=== PATIENT | male | born 2000 | race Two or more races ===

== ENCOUNTER 2020-06-10 15:58 | Emergency (ER) | payer OTHER ==
[~2020-06-10] VITALS: Ht 170.2 cm; Wt 77.0 kg
--- NOTE | 2020-06-10 16:02 | PHYS DOC ---
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 Pain in testicle started Tuesday afternoon. Patient noticed it most prevalent after lifting weights in the gym. Patient works on the [employer] unit at [employer]. Does PT regular. Patient's denies any prior history of STDs. Has had approximately 30 sexual partners in his lifetime. No recent travel overseas. No recent travel outside [facility]. Pain is somewhat localized to the epididymis of the right testicle. Lie of the testicle appears to be normal. If circumcised male. No obvious penile discharge. Patient denies any sexual activity for the last 2 weeks. Patient denies any history immunosuppression. Update vaccinations. No history of fever chills. Patient initially seen at [place] for the complaint and then referred to [facility] who then referred him to [facility]. Review of Systems: Review of Systems: Constitutional: Denies fever or chills Eyes: Denies change in visual acuity HENT: Denies nasal congestion or sore throat Respiratory: Denies cough or shortness of breath Cardiovascular: Denies chest pain or edema GI: Denies abdominal pain, nausea, vomiting, bloody stools or diarrhea . Complains of right testicular pain : Denies dysuria Musculoskeletal: Denies back pain or joint pain Integument: Denies rash Neurologic: Denies headache, focal weakness or sensory changes Endocrine: Denies polyuria or polydipsia Lymphatic: Denies swollen glands Psychiatric: Denies depression or anxiety Heart Score: Risk Factors: Risk Factors: DM, Current or recent (<one month) smoker, HTN, HLP, family history of CAD, obesity. Risk Scores: Score 0 - 3: 2.5% MACE over next 6 weeks - Discharge Home Score 4 - 6: 20.3% MACE over next 6 weeks - Admit for Clinical Observation Score 7 - 10: 72.7% MACE over next 6 weeks - Early Invasive Strategies Family History: Family History: Noncontributory to presentation Current Medications: Current Meds: See nursing for home meds Allergies: Allergies: No known drug allergies Physical Exam: PE: Constitutional: Well developed, well nourished, no acute distress, non-toxic appearance. [] HENT: Normocephalic, atraumatic, bilateral external ears normal, oropharynx moist, no oral exudates, nose normal. [] Eyes: PERRLA, EOMI, conjunctiva normal, no discharge. [] Neck: Normal range of motion, no tenderness, supple, no stridor. [] Cardiovascular:Heart rate regular rhythm, no murmur [] Lungs & Thorax: Bilateral breath sounds equal at apex on auscultation [] Abdomen: Bowel sounds normal, soft, no tenderness, no masses, no pulsatile masses. Circumcised male. Testicles descended. Mild tenderness of epididymitis on right. No obvious inguinal hernia, some tenderness to wall. . Skin: Warm, dry, no erythema, no rash. [] Back: No tenderness, no CVA tenderness. [] Extremities: No tenderness, no cyanosis, no clubbing, ROM intact, no edema. [] Neurologic: Alert and oriented X 3, normal motor function, normal sensory function, no focal deficits noted. [] Psychologic: Affect right, judgement normal, mood normal. [] EKG: EKG: [] Radiology/Procedures: Radiology/Procedures: [][address] [place] [address] IMAGING REPORT Signed PATIENT: ELGIN BALBUENA ACCOUNT: [id number] : 2000 LOCATION: ER AGE: 19 SEX: M EXAM STATUS: REG ER ORD. PHYSICIAN: SOFIE SOSA MD REASON: pain PROCEDURE: TESTICULAR/SCROTUM Testicular ultrasound HISTORY: Right testicular pain. FINDINGS: Right testicle measures 3.7 x 2.3 x 1.7 cm left testicle measures 3.7 x 2.3 x 1.6 cm. No testicular mass, edema, microlithiasis or hypervascularity. There is symmetric intact bilateral testicular blood flow without evidence of torsion. No hydrocele. No extratesticular masses. No enlargement or hypervascularity or mass of the epididymis bilaterally. 6 mm right epididymal cyst. 10 mm left epididymal cyst. IMPRESSION: Normal sonography of the testicles. Simple bilateral epididymal cysts. Electronically signed by: Bianka Tavarez MD (06/10/2020 4:55 PM) [id number] DICTATED AND SIGNED BY: BIANKA TAVAREZ MD DATE: 06/10/20 [id number] CC: JOSIAH NEWSOME; SOFIE SOSA MD ~ Course & Med Decision Making: Course & Med Decision Making Pertinent Labs and Imaging studies reviewed. (See chart for details) Patient is ice packs as needed. Wear a jock strap.. Tylenol and ibuprofen for discomfort. Push fluids. Follow-up with [facility]. Take Keflex 500 mg 3 times a day. Limit weight lifting. Return if any concerns. Impression: 1. Rt Epididymiitis [] Dragon Disclaimer: Dragon Disclaimer: This electronic medical record was generated, in whole or in part, using a voice recognition dictation system. Departure Departure: Disposition: HOME/RESIDENCE PRIOR TO ADM Condition: STABLE Referrals: JOSIAH NEWSOME (PCP) Scripts Ibuprofen (IBUPROFEN) 400 Mg Tablet 400 MG PO QIDPRN PRN for PAIN, #30 TAB Prov: SOFIE SOSA MD 06/10/20 Cephalexin (KEFLEX) 500 Mg Capsule 500 MG PO TID for Epididymitis, #30 BOTTLE Prov: SOFIE SOSA MD 06/10/20 Justification of Admission: Justification of Admission: Justification of Admission Dx: N/A Dragon Disclaimer This chart was dictated in whole or in part using Voice Recognition software in a busy, high-work load, and often noisy Emergency Department environment. It may contain unintended and wholly unrecognized errors or omissions. SOFIE SOSA MD Jun 10, 2020 16:02
[2020-06-10 16:26] LABS: CLARITY,URINE CLEAR
[2020-06-10 16:27] LABS: BILIRUBIN,URINE NEG (NEG); COLOR,URINE YELLOW; GLUCOSE,URINE NEG (NEG); NITRITE,URINE NEG (NEG); UROBILINOGEN,URINE 0.2 mg/dL (0.2 mg/dL)
[2020-06-10 16:33] LABS: BACTERIA,URINE 0 /HPF (0-FEW); RBC,URINE 0 /HPF (0-2); WBC,URINE RARE /HPF (0-4)
--- NOTE | 2020-06-10 16:58 | RAD ---
Testicular ultrasound HISTORY: Right testicular pain. FINDINGS: Right testicle measures 3.7 x 2.3 x 1.7 cm left testicle measures 3.7 x 2.3 x 1.6 cm. No testicular mass, edema, microlithiasis or hypervascularity. There is symmetric intact bilateral testicular blood flow without evidence of torsion. No hydrocele. No extratesticular masses. No enlargement or hypervascularity or mass of the epididymis bilaterally. 6 mm right epididymal cyst. 10 mm left epididymal cyst. IMPRESSION: Normal sonography of the testicles. Simple bilateral epididymal cysts. Electronically signed by: Chun Tavarez MD (06/10/2020 4:55 PM) [id number]
[2020-06-10] MEDS ORDERED: ONDANSETRON ODT 4 MG TAB.RAPDIS PO ONE (17:15)
[2020-06-10] MEDS ORDERED: cefTRIAXone IM 1 GM VIAL IM ONE ×2 (17:15→17:25)
[2020-06-10] MEDS ORDERED: KETOROLAC 60 MG/2 ML VIAL. IM ONE ×2 (17:15→17:25)
[2020-06-10] MEDS ORDERED: AZITHROMYCIN 250 MG TABLET. PO ONE (17:15)
[2020-06-10] MEDS ORDERED: metroNIDAZOLE 500 MG TABLET PO ONE (17:15)
[2020-06-10] MEDS ORDERED: CEPH-264 PO (17:20)
[2020-06-10] MEDS ORDERED: IBUP400T18 PO (17:20)
[2020-06-10] MEDS ORDERED: ONDANSETRON ODT 4 MG TAB.RAPDIS ONE (17:25)
[2020-06-10 17:36] VITALS: BP 104/63
== END 2020-06-10 17:45 | disposition home or self-care (01) ==
LOC: ER 15:58
DX: N45.1 Epididymitis (principal)
CPT/HCPCS: 76870; 81001; 96372; 99284; J0456; J0696; J1885; Q0162

== ENCOUNTER 2020-10-31 10:17 | Emergency (ER) | payer OTHER ==
[~2020-10-31] VITALS: Ht 170.2 cm; Wt 76.7 kg
[2020-10-31 10:20] VITALS: BP 135/68
--- NOTE | 2020-10-31 11:06 | PHYS DOC ---
Past History Past Medical History: No Pertinent History Past Surgical History: No Surgical History Alcohol Use: None General Adult EDM: Chief Complaint: ABSCESS HPI: HPI: Patient is a 20-year-old male coming in for an abscess to his right inner buttock. States has been present but a week. Denies any history of abscesses or trauma. No systemic complaints. Review of Systems: Review of Systems: All other systems within normal limits except for as noted in the HPI Allergies: Allergies: Allergies Coded Allergies Type Severity Reaction Last Updated Verified No Known Drug Allergies 06/10/20 No Physical Exam: PE: Constitutional: Well developed, well nourished, no acute distress, non-toxic appearance. [] HENT: Normocephalic, atraumatic, bilateral external ears normal, nose normal. [] Eyes: PERRLA, conjunctiva normal, no discharge. [] Neck: No rigidity, supple, no stridor. [] Cardiovascular: Regular rate and rhythm, brisk cap refill [] Lungs & Thorax: Non labored symmetric respirations, no tachypnea or respiratory distress [] Abdomen: Soft, nondistended. Skin: Warm, dry, no erythema, no rash. Large firm area on the right buttock near crease. [] Back: Unremarkable Extremities: No deformities, range of motion grossly intact, no lower extremity edema [] Neurologic: Alert and oriented X 3, no focal deficits noted. [] Psychologic: Affect normal, judgement normal, mood normal. [] Current Patient Data: Vital Signs: Vital Signs Date Time Temp Pulse Resp B/P (MAP) Pulse Ox O2 Delivery O2 Flow Rate FiO2 10/31/20 10:20 98.1 98 18 135/68 (90) 98 Room Air EKG: EKG: [] Radiology/Procedures: Radiology/Procedures: EXAM: CT pelvis with IV contrast DATE: 10/31/2020 11:26 AM COMPARISON: No prior INDICATION: abscess for 1 week in between buttcheeks TECHNIQUE: CT the pelvis was performed following the administration of IV contrast. Axial, coronal and sagittal reformatted images were generated. PQRS compliance statement - One or more of the following individualized dose reduction techniques were utilized for this study: 1. Automated exposure control 2. Adjustment of the mA and/or kV according to patient size 3. Use of iterative reconstruction technique FINDINGS: Along the right gluteal fold there is a 4.1 x 2.5 cm peripherally enhancing collection with marked associated soft tissue infiltration, consistent with abscess. No convincing extension to the rectum. Moderate colonic stool content is seen. Infiltration is seen about the bladder with mild bladder wall thickening. No aggressive osseous lesion is seen. IMPRESSION: 1. 4.1 cm fluid collection along the right gluteal folds consistent with abscess. Moderate associated soft tissue infiltration. 2. Thickening of the bladder wall with infiltration may be seen with cystitis and can be correlated with urinalysis. [] Impressions: Incision and drainage procedure note. Area numbed with 3 cc of 1% lidocaine. 11 blade scalpel was used to make a cruciate incision. Moderate amount of purulent drainage and caseous discharge was expelled. Wound dressed with gauze and adhesive. Heart Score: HEART Score for Chest Pain: HEART Score for Chest Pain Response (Comments) Value ECG Normal 0 Total 0 Risk Factors: Risk Factors: DM, Current or recent (<one month) smoker, HTN, HLP, family history of CAD, obesity. Risk Scores: Score 0 - 3: 2.5% MACE over next 6 weeks - Discharge Home Score 4 - 6: 20.3% MACE over next 6 weeks - Admit for Clinical Observation Score 7 - 10: 72.7% MACE over next 6 weeks - Early Invasive Strategies Course & Med Decision Making: Course & Med Decision Making Pertinent Labs and Imaging studies reviewed. (See chart for details) No deep tissue abscess. Patient started on doxycycline today for epididymitis. Advised patient to continue taking his doxycycline to cover for abscess and cellulitis as well. [] Faizaon Disclaimer: Dragon Disclaimer: This electronic medical record was generated, in whole or in part, using a voice recognition dictation system. Departure Departure: Impression: Primary Impression: Abscess Disposition: 01 DC HOME SELF CARE/HOMELESS Condition: STABLE Referrals: JOSIAH NEWSOME (PCP) Patient Instructions: Incision and Drainage, Care After MABLE ROPER MD Oct 31, 2020 11:06
[2020-10-31] MEDS ORDERED: IOHEXOL 300 MG/ML 75 ML VIAL. IV ONE (11:15)
[2020-10-31 11:25] LABS: BASO % 0 % (0-3); EOS # 0.1 x10^3/uL (0.0-0.7); EOS % 1 % (0-3); HEMATOCRIT 44.7 % (39.0-53.0); HEMOGLOBIN 14.7 g/dL (13.0-17.5); LYMPH # 1.9 x10^3/uL (1.0-4.8); LYMPH % 15 % (24-48); MEAN CORPUSCULAR HEMOGLOBIN 30 pg (25-35); MEAN CORPUSCULAR HGB CONC 33 g/dL (31-37); MEAN CORPUSCULAR VOLUME 90 fL (79-100); MONO # 1.1 x10^3/uL (0.0-1.1); MONO % 9 % (0-9); NEUT # 10.1 x10^3uL (1.8-7.7); NEUT % 76 % (31-73); PLATELET COUNT 255 x10^3/uL (140-400); RED BLOOD COUNT 4.99 x10^6/uL (4.30-5.70); RED CELL DISTRIBUTION WIDTH 12.5 % (11.5-14.5); WHITE BLOOD COUNT 13.2 x10^3/uL (4.0-11.0)
[2020-10-31 11:32] LABS: CALCIUM 8.7 mg/dL (8.5-10.1); CREATININE 1.1 mg/dL (0.7-1.3); GFR 84.5; POTASSIUM 3.8 mmol/L (3.5-5.1)
[2020-10-31 11:38] LABS: ALBUMIN 3.5 g/dL (3.4-5.0); ALBUMIN/GLOBULIN RATIO 0.9 (1.0-1.7); TOTAL BILIRUBIN 0.7 mg/dL (0.2-1.0); TOTAL PROTEIN 7.6 g/dL (6.4-8.2)
--- NOTE | 2020-10-31 12:28 | RAD ---
EXAM: CT pelvis with IV contrast DATE: 10/31/2020 11:26 AM COMPARISON: No prior INDICATION: abscess for 1 week in between buttcheeks TECHNIQUE: CT the pelvis was performed following the administration of IV contrast. Axial, coronal an d sagittal reformatted images were generated. PQRS compliance statement - One or more of the following individualized dose reduction techniques wer e utilized for this study: 1. Automated exposure control 2. Adjustment of the mA and/or kV according to patient size 3. Use of iterative reconstruction technique FINDINGS: Along the right gluteal fold there is a 4.1 x 2.5 cm peripherally enhancing collection with marked as sociated soft tissue infiltration, consistent with abscess. No convincing extension to the rectum. Moderate colonic stool content is seen. Infiltration is seen about the bladder with mild bladder wall thickening. No aggressive osseous lesion is seen. IMPRESSION: 1. 4.1 cm fluid collection along the right gluteal folds consistent with abscess. Moderate associate d soft tissue infiltration. 2. Thickening of the bladder wall with infiltration may be seen with cystitis and can be correlated with urinalysis. Electronically signed by: Jonathan Ryan MD (10/31/2020 12:26 PM) [id number]
[2020-10-31] MEDS ORDERED: LIDOCAINE 1% Multi-Dose 20 ML VIAL. ONE (12:54)
[2020-10-31] MEDS ORDERED: LIDOCAINE 1%/EPI 1:100,000 20 ML VIAL. IJ ONE (13:00)
[2020-10-31] MEDS ORDERED: LIDOCAINE 1% PF 30 ML VIAL. INJ ONE (13:15)
== END 2020-10-31 13:46 | disposition home or self-care (01) ==
LOC: ER 10:17
DX: L02.31 Cutaneous abscess of buttock (principal)
CPT/HCPCS: 10060; 36415; 72193; 80053; 85025; 99285; Q9967

== ENCOUNTER → 2020-10-31 | Outpatient (CLI) | payer OTHER ==
[~2020-10-31] MED LIST: CEPH-264 PO; IBUP400T18 PO
--- NOTE | 2020-10-31 16:23 | RAD ---
EXAM: Scrotal sonogram. HISTORY: Testicular pain. TECHNIQUE: Collins scale and color Doppler sonographic imaging of the testes with spectral waveform anal ysis was performed. COMPARISON: None. FINDINGS: The testes are normal in size and demonstrates normal symmetric blood flow. No suspicious t esticular lesion is seen. There is a single calcification within the right testis. The previously dem onstrated right epididymal cyst is no longer seen. There is a 1.3 cm left epididymal cyst. There is a right varicocele. No hydrocele is seen. IMPRESSION: 1. No acute sonographic finding. 2. Slight interval increase in the size of a 1.3 cm left epididymal cyst. The previously demonstrated right foraminal stenosis is no longer seen. 3. Right varicocele. 4. Single calcification within the right testis. Electronically signed by: Gracie Gonsales MD (10/31/2020 4:21 PM) [id number]
== END ==
LOC: US 09:46
PROVIDERS: ATTEND Specialist
DX: I86.1 Scrotal varices (principal); N50.3 Cyst of epididymis; N50.89 Other specified disorders of the male genital organs
CPT/HCPCS: 76870

== ENCOUNTER 2020-12-25 15:44 | Emergency (ER) | payer OTHER ==
[~2020-12-25] VITALS: Ht 170.2 cm; Wt 76.7 kg
--- NOTE | 2020-12-25 15:55 | PHYS DOC ---
Past History Past Medical History: No Pertinent History Past Surgical History: No Surgical History Alcohol Use: None Drug Use: None Adult General Chief Complaint Chief Complaint: Sinus pain/folliculitis over right nare [facility] Patient is a 20-year-old male who presents due to concerns over folliculitis over the right nare and concerns of sinus infection. He reports symptoms initially began about a week ago and include sinus pain/pressure, postnasal drip, cough, headache, and a growing cyst/abscess over the right nare. He reports approximately 2 to 3 days after the onset of symptoms he saw the [employer] [facility] who gave him some Mucinex, Tylenol, and ibuprofen to manage his symptoms. He reports after several days of this supportive care he began to feel slightly better however over the last couple days he noticed an abscess-like structure over his right nare that has gradually enlarged and become more painful and bothersome. He reports it feels like there is a cyst inside and outside his nose. Reports wearing his mask and slight pressure suddenly increase his pain sensation to the area. He reports he has had something like this in the past and at that time he reports they lanced it from the inside of the nose and he gained relief from the procedure. He has not tried any gumg-oci-ntbaymk benzyl peroxide or Differin cream, or any baxk-oxk-znymydk nasal decongestions or antihistamines. He denies fevers, shortness of breath, purulent nasal discharge, and recent antibiotic use. Review of Systems Review of Systems Fourteen body systems of review of systems have been reviewed. See HPI for pertinent positives and negative responses, other wyatt all other systems are negative, non-pertinent or non-contributory Allergies Allergies Allergies Coded Allergies Type Severity Reaction Last Updated Verified No Known Drug Allergies 06/10/20 No Physical Exam Physical Exam General: Appears well, non toxic, and comfortable Skin: Warm, dry. Normal for ethnicity. HEENT: Atraumatic. PERRLA. Rhinorrhea and congestion. Nasal turbinates boggy b/l. Moist mucous membranes. Uvula midline. Maintaining secretions. No phonation changes. Right ear is impacted with wax; left tympanic membrane is not erythematous with a clear cone of light. Findings consistent with cellulitis over right nare with overlying erythema and pain on palpation. No obvious abscess of focal collection of pus requiring I&D at present. Nares appear to be patent, without any swelling of the nasal septum or visible drainage. Left maxillary sinus TTP without crepitus Neck: Trachea midline. Normal ROM. No stridor. Respiratory: Normal WOB. CTAB w/o w/r/r. No tachypnea. Cardiovascular: Regular rate and rhythm. Normal peripheral perfusion. Abdomen: Soft. Non tender. No distension. Back: Normal ROM. Musculoskeletal: No swelling or deformity. Neuro: Alert and oriented x 4. MAEE. Lymph: No cervical LAD. Psych: Normal affect and mood. Current Patient Data Vital Signs Vital Signs Date Time Temp Pulse Resp B/P (MAP) Pulse Ox O2 Delivery O2 Flow Rate FiO2 12/25/20 15:58 97.8 73 16 132/64 (86) 99 Room Air Vital Signs Date Time Temp Pulse Resp B/P (MAP) Pulse Ox O2 Delivery O2 Flow Rate FiO2 12/25/20 15:58 97.8 73 16 132/64 (86) 99 Room Air EKG EKG [] Radiology/Procedures Radiology/Procedures [] Heart Score C/O Chest Pain: No HEART Score for Chest Pain: HEART Score for Chest Pain Response (Comments) Value History Slighlty/Non-Suspicious 0 Age < 45 0 Risk Factors No Risk Factors 0 Total 0 Risk Factors: Risk Factors: DM, Current or recent (<one month) smoker, HTN, HLP, family history of CAD, obesity. Risk Scores: Risk Factors: DM, Current or recent (<one month) smoker, HTN, HLP, family history of CAD, obesity. Course & Med Decision Making Course & Med Decision Making Patient is a 20-year-old male presenting due to concerns of sinus infection and abscess over right nare. Vitals were within normal limits on exam and physical exam was significant for an erythematous right nare with a cystlike structure overlying the nare. On exam patient was well-appearing and in no acute distress. Given location and recent progression from lateral portion of nare to midface, joint-decision made to start antibiotic therapy. Doxycycling chosen for antiinflammatory and skin benefits and tolerated in ER prior to departure. He was told to apply an quai-kgq-rxlysef acne medication such as benzyl peroxide or Differin gel to the right nare for relief of the abscess/pimple. He was also told to use an vsdh-llj-lytifhx decongestant such as Afrin or pseudoephedrine and an antihistamine and to continue using ibuprofen or Tylenol as needed for symptomatic relief of sinus infection. Patient was given return precautions and vocalized agreement of the plan of care and understanding of the return precautions. Dragon Disclaimer Faizaon Disclaimer This electronic medical record was generated, in whole or in part, using a voice recognition dictation system. Departure Departure: Impression: Primary Impression: Sinusitis Additional Impression: Cellulitis of sidewall of nose Disposition: 01 DC HOME SELF CARE/HOMELESS Condition: STABLE Referrals: PCP,UNKNOWN (PCP) Additional Instructions: You were seen today due to concerns of a superficial abscess over your right nare and concerns due to sinus infection. On exam you were well-appearing and due to the short course of symptoms and because most sinus infections are viral in nature we recommend continuing supportive care such as ibuprofen or Tylenol for pain management and an hoho-fdf-dxbpzug decongestant such as Afrin or pseudoephedrine and an gpeo-shc-agngbbk antihistamine such as Claritin Zyrtec or Ericka for symptomatic management. You have been given a short term antibiotic to use called doxycycline that should help improve symptoms and provide antibiotic coverage in addition to anti-inflammatory benefits. Please be aware of side effects such as GI distress and increased risk of sunburn while using this medication. Please notify your chain command that you were started on this medication and discuss need for close outpatient follow-up at [facility]. If any concerning signs or symptoms present prior to outpa tient follow-up please do not hesitate to come back for repeat evaluation. It was pleasure to take care of you and I wish you a speedy recovery Scripts Doxycycline Hyclate (DOXYCYCLINE HYCLATE) 100 Mg Tablet 1 TAB PO BID for SINUSITIS for 7 Days, #13 TAB Prov: EDUARDO BASURTO DO 12/25/20 Problem Qualifiers EDUARDO BASURTO DO Dec 25, 2020 15:55
[2020-12-25 15:58] VITALS: BP 132/64
[2020-12-25] MEDS ORDERED: DOXY100T PO (16:24)
[2020-12-25] MEDS ORDERED: DOXYCYCLINE HYCLATE 100 MG TABLET PO ONE (16:30)
== END 2020-12-25 16:30 | disposition home or self-care (01) ==
LOC: ER 15:44
DX: J32.9 Chronic sinusitis, unspecified (principal); J34.0 Abscess, furuncle and carbuncle of nose
CPT/HCPCS: 99283

== ENCOUNTER 2020-12-28 14:43 | Emergency (ER) | payer OTHER ==
[~2020-12-28] VITALS: Ht 170.2 cm; Wt 76.7 kg
[~2020-12-28 14:43] MED LIST changes: +DOXY100T PO
[2020-12-28 14:46] VITALS: BP 125/76
--- NOTE | 2020-12-28 15:13 | PHYS DOC ---
Past History Past Medical History: No Pertinent History Past Surgical History: No Surgical History Alcohol Use: None Drug Use: None Adult General Chief Complaint Chief Complaint: Neck Pain HPI HPI Patient is a [age] year old [sex] who presents with [] Here for mono test per PCP due to close contact and cervical lymphadenopathy Review of Systems Review of Systems Fourteen body systems of review of systems have been reviewed. See HPI for pertinent positives and negative responses, other wyatt all other systems are negative, non-pertinent or non-contributory Allergies Allergies Allergies Coded Allergies Type Severity Reaction Last Updated Verified No Known Drug Allergies 06/10/20 No Physical Exam Physical Exam Constitutional: Well developed, well nourished, no acute distress, non-toxic appearance. HENT: Normocephalic, atraumatic, bilateral external ears normal, oropharynx moist, no oral exudates, nose normal. Eyes: PERRLA, EOMI, conjunctiva normal, no discharge. Neck: Normal range of motion, no tenderness, supple, no stridor. Cardiovascular: Heart rate regular, sinus rhythm, no murmurs rubs or gallops Lungs & Thorax: Bilateral breath sounds clear to auscultation Abdomen: Bowel sounds normal, soft, no tenderness, no masses, no pulsatile masses. Nonsurgical abdomen, no peritoneal signs Skin: Warm, dry, no erythema, no rash. Back: No tenderness, no CVA tenderness. Extremities: No tenderness, no cyanosis, no clubbing, ROM intact, no edema. Neurologic: Alert and oriented X 3, grossly normal motor & sensory function, no focal deficits noted. Psychologic: Affect normal, judgement normal, mood normal. EKG EKG [] Radiology/Procedures Radiology/Procedures [] Heart Score Risk Factors: Risk Factors: DM, Current or recent (<one month) smoker, HTN, HLP, family history of CAD, obesity. Risk Scores: Risk Factors: DM, Current or recent (<one month) smoker, HTN, HLP, family history of CAD, obesity. Course & Med Decision Making Course & Med Decision Making Pertinent Labs and Imaging studies reviewed. (See chart for details) [] Dragon Disclaimer Dragon Disclaimer This electronic medical record was generated, in whole or in part, using a voice recognition dictation system. Departure Departure: Impression: Primary Impression: [place] exposure Disposition: 01 DC HOME SELF CARE/HOMELESS Condition: GOOD Referrals: PCP,UNKNOWN (PCP) Additional Instructions: As discussed, you were negative for mono testing today while in ER setting. Also as disclosed, please contact your main hospital tomorrow, anytime this week during normal business hours to discuss signing and releasing your medical records to be sent to your primary care physician so they can upload into the [facility] database. If you have any questions or concerns please do not hesitate to call our ER and/or represent for repeat evaluation. Is a pleasure to take care of you and I wish you the best going forward EDUARDO BASURTO DO Dec 28, 2020 15:13
[2020-12-28 16:16] LABS: MONONUCLEOSIS PATIENT NEGATIVE (NEGATIVE)
== END 2020-12-28 16:53 | disposition home or self-care (01) ==
LOC: ER 14:43
DX: M54.2 Cervicalgia (principal); B27.90 Infectious mononucleosis, unspecified without complication
CPT/HCPCS: 86308; 99283-25

== ENCOUNTER 2021-02-14 04:18 | Emergency (ER) | payer OTHER ==
[~2021-02-14] VITALS: Ht 167.6 cm; Wt 76.7 kg
[2021-02-14 04:23] VITALS: BP 115/74
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
[2021-02-14] MEDS ORDERED: oxyCODONE/APAP 5/325 1 TAB TABLET PO ONE (05:30)
== END 2021-02-14 05:31 | disposition home or self-care (01) ==
LOC: ER 04:18
DX: S02.2XXA Fracture of nasal bones, initial encounter for closed fracture (principal); S09.8XXA Other specified injuries of head, initial encounter; Y04.2XXA Assault by strike against or bumped into by another person, initial encounter; Y93.89 Activity, other specified; Y92.89 Other specified places as the place of occurrence of the external cause; Y99.8 Other external cause status
CPT/HCPCS: 70450; 70486; 72125; 99285-25

== ENCOUNTER 2021-02-23 10:03 | Emergency (ER) | payer OTHER ==
[~2021-02-23] VITALS: Ht 167.6 cm; Wt 77.1 kg
[2021-02-23 10:10] VITALS: BP 106/50
[2021-02-23] MEDS ORDERED: CEPH500T PO (10:46)
--- NOTE | 2021-02-23 10:46 | PHYS DOC ---
Past History Past Medical History: No Pertinent History Past Surgical History: No Surgical History Alcohol Use: Occasionally Drug Use: None General Adult EDM: Chief Complaint: SKIN PROBLEM HPI: HPI: 20-year-old male presents with spider bite likely infection on the right forearm. He got bit about a week and a half ago but over the last couple of days he has had a spreading erythematous area. Patient denies fever. He has no other complaints. He did drain a small amount of purulent fluid from yesterday. Review of Systems: Review of Systems: Constitutional: Denies fever or chills Eyes: Denies change in visual acuity HENT: Denies nasal congestion or sore throat Respiratory: Denies cough or shortness of breath Cardiovascular: Denies chest pain or edema GI: Denies abdominal pain, nausea, vomiting, bloody stools or diarrhea : Denies dysuria Musculoskeletal: Denies back pain or joint pain Integument: Spider bite rash right arm Neurologic: Denies headache, focal weakness or sensory changes Endocrine: Denies polyuria or polydipsia Lymphatic: Denies swollen glands Psychiatric: Denies depression or anxiety Allergies: Allergies: Allergies Coded Allergies Type Severity Reaction Last Updated Verified No Known Drug Allergies 06/10/20 No Physical Exam: PE: Constitutional: Well developed, well nourished, no acute distress, non-toxic appearance. [] HENT: Normocephalic, atraumatic, bilateral external ears normal, oropharynx moist, no oral exudates, nose normal. [] Eyes: PERRLA, EOMI, conjunctiva normal, no discharge. [] Neck: Normal range of motion, no tenderness, supple, no stridor. [] Cardiovascular:Heart rate regular rhythm, no murmur [] Lungs & Thorax: Bilateral breath sounds clear to auscultation [] Abdomen: Bowel sounds normal, soft, no tenderness, no masses, no pulsatile masses. [] Skin: Erythematous, warm area 6 cm in diameter with a central abscess with draining. [] Back: No tenderness, no CVA tenderness. [] Extremities: No tenderness, no cyanosis, no clubbing, ROM intact, no edema. [] Neurologic: Alert and oriented X 3, normal motor function, normal sensory function, no focal deficits noted. [] Psychologic: Affect normal, judgement normal, mood normal. [] Current Patient Data: Vital Signs: Vital Signs Date Time Temp Pulse Resp B/P (MAP) Pulse Ox O2 Delivery O2 Flow Rate FiO2 02/23/21 10:10 97.7 72 20 106/50 (68) 96 Room Air EKG: EKG: [] Radiology/Procedures: Radiology/Procedures: [] Heart Score: C/O Chest Pain: N/A Risk Factors: Risk Factors: DM, Current or recent (<one month) smoker, HTN, HLP, family history of CAD, obesity. Risk Scores: Score 0 - 3: 2.5% MACE over next 6 weeks - Discharge Home Score 4 - 6: 20.3% MACE over next 6 weeks - Admit for Clinical Observation Score 7 - 10: 72.7% MACE over next 6 weeks - Early Invasive Strategies Course & Med Decision Making: Course & Med Decision Making Pertinent Labs and Imaging studies reviewed. (See chart for details) The patient appears to have cellulitis. There was a small abscess which has been drained. I do not need to I&D him. I will prescribe him Keflex. He is stable for discharge at this time. [] Dragon Disclaimer: Dragon Disclaimer: This electronic medical record was generated, in whole or in part, using a voice recognition dictation system. Departure Departure: Impression: Primary Impression: Cellulitis of right forearm Disposition: HOME / SELF CARE / HOMELESS Condition: STABLE Referrals: NELI GARCIA DO (PCP) Patient Instructions: Cellulitis, [id number] Scripts Cephalexin (CEPHALEXIN) 500 Mg Tablet 1 TAB PO TID for cellulitis for 7 Days, #21 TAB Prov: GULSHAN SAENZ DO 02/23/21 GULSHAN SAENZ DO Feb 23, 2021 10:46
== END 2021-02-23 10:53 | disposition home or self-care (01) ==
LOC: ER 10:03
DX: L03.113 Cellulitis of right upper limb (principal)
CPT/HCPCS: 99283

== ENCOUNTER 2021-03-25 16:40 | Emergency (ER) | payer OTHER ==
[~2021-03-25] VITALS: Ht 170.2 cm; Wt 77.1 kg
[~2021-03-25 16:40] MED LIST changes: +CEPH500T PO
[2021-03-25] MEDS ORDERED: NEOMY/BACITR/POLYMYXIN OINT PACKET. TP ONE ×2 (17:13→17:45)
[2021-03-25] MEDS ORDERED: MUPI15CR8 TP ×2 (17:13→17:17)
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
[2021-03-25 17:37] VITALS: BP 112/57
== END 2021-03-25 17:22 | disposition home or self-care (01) ==
LOC: ER 16:40
DX: T22.10XA Burn of first degree of shoulder and upper limb, except wrist and hand, unspecified site, initial encounter (principal); X08.8XXA Exposure to other specified smoke, fire and flames, initial encounter; Y93.89 Activity, other specified; Y92.89 Other specified places as the place of occurrence of the external cause; Y99.8 Other external cause status
CPT/HCPCS: 16020; 99283